=== PATIENT | female | born 1965 | race Two or more races ===

== ENCOUNTER 2019-11-01 10:41 | Emergency (ER) | payer OTHER ==
[~2019-11-01] VITALS: Ht 160 cm; Wt 81.6 kg
[2019-11-01] MEDS ORDERED: CLARITIN10 M1 PO (11:11)
[2019-11-01] MEDS ORDERED: FORTAMET500 MG PO (11:11)
[2019-11-01] MEDS ORDERED: SINGULAIR10 MG PO (11:11)
== END 2019-11-01 14:25 | disposition home or self-care (01) ==
LOC: ER 10:41
DX: R10.31 Right lower quadrant pain (principal); R10.2 Pelvic and perineal pain